=== PATIENT | male | born 1990 | race African-American/Black ===

== ENCOUNTER 2017-11-19 16:34 | Emergency (ER) | payer OTHER | END 2017-11-19 17:31 | disposition home or self-care (01) | LOC: ER 16:34 | DX: M21.331 Wrist drop, right wrist (principal); W19.XXXA Unspecified fall, initial encounter; Y93.89 Activity, other specified; Y92.89 Other specified places as the place of occurrence of the external cause; Y99.8 Other external cause status | CPT/HCPCS: 29125; 99283-25 ==

== ENCOUNTER 2018-05-13 13:23 | Emergency (ER) | payer OTHER ==
[2018-05-13 13:57] LABS: ADD MAN DIFF? NO
[2018-05-13 14:01] LABS: BASO # 0.1 x10^3/uL (0.0-0.2); BASO % 1 % (0-3); EOS # 0.2 x10^3/uL (0.0-0.7); EOS % 3 % (0-3); HEMATOCRIT 43.7 % (39.0-53.0); HEMOGLOBIN 15.1 g/dL (13.0-17.5); LYMPH # 2.4 x10^3/uL (1.0-4.8); LYMPH % 32 % (24-48); MEAN CORPUSCULAR HEMOGLOBIN 33 pg (25-35); MEAN CORPUSCULAR HGB CONC 35 g/dL (31-37); MEAN CORPUSCULAR VOLUME 95 fL (79-100); MONO # 0.5 x10^3/uL (0.0-1.1); MONO % 7 % (0-9); NEUT # 4.3 x10^3uL (1.8-7.7); NEUT % 57 % (31-73); PLATELET COUNT 290 x10^3/uL (140-400); RED BLOOD COUNT 4.61 x10^6/uL (4.30-5.70); RED CELL DISTRIBUTION WIDTH 12.4 % (11.5-14.5); WHITE BLOOD COUNT 7.5 x10^3/uL (4.0-11.0)
[2018-05-13 14:13] LABS: ANION GAP 8 (6-14); BLOOD UREA NITROGEN 7 mg/dL (8-26); CARBON DIOXIDE 29 mmol/L (21-32); CHLORIDE 103 mmol/L (98-107); GFR 107.7; GLUCOSE 87 mg/dL (70-99); POTASSIUM 3.6 mmol/L (3.5-5.1); SODIUM 140 mmol/L (136-145)
[2018-05-13] MEDS ORDERED: CONTRAST GIVEN. MC (14:15)
[2018-05-13] MEDS: IOHEXOL 300 MG/ML 100ML VIAL. IV (14:24)
[2018-05-13] MEDS: DEXAMETHASONE SOD PHOS 20 MG/5 ML VIAL. IV (15:21)
[2018-05-13] MEDS: fentaNYL PF VIAL 100 MCG/2 ML VIAL IV (15:22)
== END 2018-05-13 15:55 | disposition short-term general hospital (02) ==
LOC: ER 15:55
DX: S19.9XXA Unspecified injury of neck, initial encounter (principal); X58.XXXA Exposure to other specified factors, initial encounter; Y93.89 Activity, other specified; Y99.8 Other external cause status; Y92.89 Other specified places as the place of occurrence of the external cause
CPT/HCPCS: 36415; 70491; 80048; 85025; 96374; 96375; 99285-25; J1100; J3010; Q9967

== ENCOUNTER 2020-06-18 19:39 | Emergency (ER) | payer MEDICAID, MEDICARE, OTHER ==
[~2020-06-18] VITALS: Ht 177.8 cm; Wt 68.0 kg
[2020-06-18 21:20] VITALS: BP 110/67
[2020-06-18] MEDS ORDERED: SULF1TAB24 PO (21:52)
--- NOTE | 2020-06-18 21:53 | PHYS DOC ---
Past Medical History Past Medical History: Other Additional Past Medical Histor: eczema Past Surgical History: No Surgical History Smoking Status: Never Smoker Alcohol Use: Occasionally Drug Use: None General Adult EDM: Chief Complaint: ABSCESS HPI: HPI: Patient is a 30 year old male who presents to the ED today complaining of spider bites to the right lower extremity that he noted a week ago. Patient appears intoxicated. Admits to drinking alcohol. Review of Systems: Review of Systems: Constitutional: Denies fever or chills. [] Musculoskeletal: Denies back pain or joint pain. [] Integument: Reports insect bite/spider bite to the right lower extremity Neurologic: Denies headache, focal weakness or sensory changes. [] Psychiatric: Denies depression or anxiety. [] Heart Score: Risk Factors: Risk Factors: DM, Current or recent (<one month) smoker, HTN, HLP, family his tory of CAD, obesity. Risk Scores: Score 0 - 3: 2.5% MACE over next 6 weeks - Discharge Home Score 4 - 6: 20.3% MACE over next 6 weeks - Admit for Clinical Observation Score 7 - 10: 72.7% MACE over next 6 weeks - Early Invasive Strategies Allergies: Allergies: Allergies Coded Allergies Type Severity Reaction Last Updated Verified No Known Drug Allergies 06/03/14 No Physical Exam: PE: Constitutional: Well developed, well nourished, no acute distress, non-toxic appearance. [] Skin: Warm, dry, right lateral doan with an open wound roughly 2 x 2 cm. There is no drainage. Slight erythema around the region. Back: No tenderness, no CVA tenderness. [] Extremities: No tenderness, no cyanosis, no clubbing, ROM intact, no edema. [] Neurologic: Alert and oriented X 3, normal motor function, normal sensory function, no focal deficits noted. [] Psychologic: Patient appears intoxicated. Smells of alcohol. EKG: EKG: [] Radiology/Procedures: Radiology/Procedures: [] Course & Med Decision Making: Course & Med Decision Making Pertinent Labs and Imaging studies reviewed. (See chart for details) This is a 30-year-old male patient with an abscess on the right doan that appears to have opened up and drained. There is slight erythema around it. Discharged on Bactrim. Follow-up with primary care doctor in 1 to 2 weeks as needed. Dragon Disclaimer: Dragon Disclaimer: This electronic medical record was generated, in whole or in part, using a voice recognition dictation system. Departure Departure Impression: Primary Impression: Cellulitis and abscess of right lower extremity Disposition: HOME, SELF-CARE Condition: STABLE Referrals: NO PCP (PCP) follow up with your doctor in 1-2 weeks Patient Instructions: Cellulitis, [id number] Additional Instructions: Please take the prescribed antibiotic until completed. Keep the area clean and dry. Follow-up with your own doctor in 1 to 2 weeks. Scripts Sulfamethoxazole/Trimethoprim (BACTRIM DS TABLET) 1 Each Tablet 1 TAB PO BID for 10 Days, #20 TAB 0 Refills Prov: ONELIA SANTACRUZ APRN 06/18/20 Justicifation of Admission Dx: Justifications for Admission: Justification of Admission Dx: N/A ONELIA SANTACRUZ APRN Jun 18, 2020 21:53
== END 2020-06-18 22:00 | disposition home or self-care (01) ==
LOC: ER 19:39
DX: L03.115 Cellulitis of right lower limb (principal); W57.XXXA Bitten or stung by nonvenomous insect and other nonvenomous arthropods, initial encounter; Y93.89 Activity, other specified; Y92.89 Other specified places as the place of occurrence of the external cause; Y99.8 Other external cause status
CPT/HCPCS: 99283

== ENCOUNTER 2021-05-13 20:12 | Emergency (ER) | payer MEDICARE ==
[~2021-05-13 20:12] MED LIST: SULF1TAB24 PO
== END 2021-05-13 21:29 | disposition left against medical advice (07) ==
LOC: ER 20:12
DX: T14.8XXA Other injury of unspecified body region, initial encounter (principal); Z53.21 Procedure and treatment not carried out due to patient leaving prior to being seen by health care provider; W54.0XXA Bitten by dog, initial encounter; Y93.89 Activity, other specified; Y92.89 Other specified places as the place of occurrence of the external cause; Y99.8 Other external cause status